=== PATIENT | male | born 1970 | race Caucasian/White ===

== ENCOUNTER 2017-06-26 20:11 | Emergency (ER) | payer OTHER ==
[~2017-06-26] VITALS: Ht 190.5 cm; Wt 136.1 kg
[~2017-06-26 20:11] MED LIST: BP MEDICATION; DOXYCYCLINE100 MG PO; LISINOPRIL10 MG PO; LODINE400 MG PO; TRAMADOL HCL50 MG PO; VICODIN 5/500 505 MG PO
[2017-06-26 21:22] LABS: BASO % 0.7 % (0.0-1.0); EOS % 0.5 % (1.0-4.0); HEMATOCRIT 40.4 % (42.0-52.0); HEMOGLOBIN 13.2 g/dl (14.0-18.0); LYMPH # 1.1 10*3/uL (1.3-4.4); LYMPH % 18.4 % (27.0-41.0); MEAN CORPUSCULAR HGB 27.4 pg (27.0-31.0); MEAN CORPUSCULAR HGB CONC 32.7 g/dl (33.0-37.0); MEAN PLATELET VOLUME 9.5 fl (9.6-12.3); MONO # 0.7 10*3/uL (0.1-1.0); MONO % 11.1 % (3.0-9.0); NEUT % 69.1 % (47.0-73.0); PLATELET COUNT AUTOMATED 165 10*3/uL (130-400); RED BLOOD COUNT 4.81 10*6/uL (4.50-5.90); RED CELL DISTRI WIDTH 13.6 % (0-14.5); WHITE BLOOD COUNT 5.8 10*3/uL (4.8-10.8)
[2017-06-26 21:38] LABS: ALBUMIN 3.5 gm/dl (3.1-4.5); ALKALINE PHOSPHATASE 54 U/L (45-117); BUN 10 mg/dl (7-24); CHLORIDE 99 mmol/L (98-107); SGOT/AST 31 IU/L (3-35); SGPT/ALT 39 U/L (12-78); SODIUM 137 mmol/L (136-145); TOTAL PROTEIN 7.6 gm/dL (6.4-8.2)
[2017-06-26 21:40] LABS: TROPONIN I < 0.015 ng/ml (<0.045)
[2017-06-26] MEDS ORDERED: PROVENTIL HFA6.7 GM INH (22:44)
[2017-06-26] MEDS ORDERED: CLARITIN10 MG PO (22:44)
[2017-06-26] MEDS ORDERED: TAMIFLU45 MG PO (22:44)
[2017-06-26 22:55] LABS: BILIRUBIN NEGATIVE (NEGATIVE); BLOOD NEGATIVE (NEGATIVE); CLARITY SL CLOUDY (CLEAR); COLOR YELLOW (YELLOW); GLUCOSE NEGATIVE (NEGATIVE); KETONE NEGATIVE (NEGATIVE); LEUKO ESTERASE NEGATIVE (NEGATIVE); NITRITE NEGATIVE (NEGATIVE); SPECIFIC GRAVITY >= 1.030 (1.005-1.030); UROBILINOGEN 0.2 E.U./dl (0.2-1.0)
[2017-06-26 23:02] LABS: BACTERIA 1+; EPITHELIAL CELLS 0-2; RBC 0-2 rbc/hpf (0-2)
[2017-06-26 23:03] LABS: MUCOUS TRACE
== END 2017-06-26 22:52 | disposition home or self-care (01) ==
LOC: ED 20:11
PROVIDERS: Emergency Medicine
DX: J09.X2 Influenza due to identified novel influenza A virus with other respiratory manifestations (principal); Z98.890 Other specified postprocedural states; Z79.899 Other long term (current) drug therapy

== ENCOUNTER → 2020-02-09 | Outpatient (CLI) | payer OTHER ==
[~2020-02-09] MED LIST changes: +CLARITIN10 MG PO; +PROVENTIL HFA6.7 GM INH; +TAMIFLU45 MG PO
[2020-02-09 18:48] LABS: BASO % 0.3 % (0.0-1.0); EOS # 0.5 10*3/uL (0.0-0.4); EOS % 5.6 % (1.0-4.0); HEMATOCRIT 44.4 % (42.0-52.0); LYMPH # 2.2 10*3/uL (1.3-4.4); LYMPH % 24.8 % (27.0-41.0); MEAN CELL VOLUME 84.3 fl (80.0-94.0); MEAN CORPUSCULAR HGB 26.6 pg (27.0-31.0); MEAN CORPUSCULAR HGB CONC 31.5 g/dl (33.0-37.0); MEAN PLATELET VOLUME 10.1 fl (9.6-12.3); MONO # 0.5 10*3/uL (0.1-1.0); MONO % 5.3 % (3.0-9.0); NEUT # 5.6 10*3/uL (2.3-7.9); NEUT % 63.7 % (47.0-73.0); PLATELET COUNT AUTOMATED 258 10*3/uL (130-400); RED BLOOD COUNT 5.27 10*6/uL (4.50-5.90); RED CELL DISTRI WIDTH 13.8 % (0-14.5); WHITE BLOOD COUNT 8.7 10*3/uL (4.8-10.8)
[2020-02-09 19:00] LABS: BILIRUBIN NEGATIVE; BLOOD NEGATIVE (NEGATIVE); CLARITY CLEAR (CLEAR); COLOR YELLOW (YELLOW); GLUCOSE NEGATIVE; KETONE NEGATIVE; LEUKO ESTERASE NEGATIVE (NEGATIVE); NITRITE NEGATIVE (NEGATIVE)
[2020-02-09 19:09] LABS: ALBUMIN 3.5 gm/dl (3.1-4.5); ALKALINE PHOSPHATASE 75 U/L (45-117); BUN 9 mg/dl (7-24); CHLORIDE 104 mmol/L (98-107); CHOLESTEROL 162 mg/dL (<200); CREATININE 0.91 mg/dL (0.70-1.30); HDL CHOLESTEROL 34 mg/dl (40-60); LDL CHOLESTEROL 96 mg/dL (9-159); POTASSIUM 3.9 mmol/L (3.5-5.1); SGOT/AST 18 IU/L (3-35); SGPT/ALT 26 U/L (12-78); SODIUM 138 mmol/L (136-145); TOTAL PROTEIN 7.7 gm/dL (6.4-8.2); TRIGLYCERIDES 159 mg/dl (<150); VLDL CHOLESTEROL 32 mg/dL (6-40)
[2020-02-09 19:10] LABS: BACTERIA TRACE; EPITHELIAL CELLS 0-2; MUCOUS 1+; WBC 0-2 wbc/hpf (0-5)
== END | disposition home or self-care (01) ==
LOC: LAB 16:41
PROVIDERS: ATTEND Internal Medicine
DX: Z12.5 Encounter for screening for malignant neoplasm of prostate (principal); I10 Essential (primary) hypertension; E78.9 Disorder of lipoprotein metabolism, unspecified; R63.5 Abnormal weight gain; R79.9 Abnormal finding of blood chemistry, unspecified

== ENCOUNTER → 2020-04-09 | Outpatient (CLI) | payer OTHER | END | disposition home or self-care (01) | LOC: COVID19 01:39 | PROVIDERS: ATTEND Student in an Organized Health Care Education/Training Program | DX: Z20.828 Contact with and (suspected) exposure to other viral communicable diseases (principal) ==

== ENCOUNTER 2021-05-21 14:20 | Inpatient (IN) | payer OTHER ==
[2021-05-21] VITALS (11 sets, daily range): BP systolic 112–148; BP diastolic 66–91
[~2021-05-21] VITALS: Ht 187.9 cm; Wt 136.3 kg
[2021-05-21 15:17] LABS: HEMATOCRIT 47.2 % (42.0-52.0); LYMPH % 20.7 % (27.0-41.0); MEAN CELL VOLUME 84.9 fl (80.0-94.0); MEAN CORPUSCULAR HGB 26.3 pg (27.0-31.0); MEAN CORPUSCULAR HGB CONC 30.9 g/dl (33.0-37.0); MEAN PLATELET VOLUME 10.6 fl (9.6-12.3); MONO # 0.3 10*3/uL (0.1-1.0); MONO % 6.8 % (3.0-9.0); NEUT # 3.6 10*3/uL (2.3-7.9); NEUT % 72.3 % (47.0-73.0); PLATELET COUNT AUTOMATED 184 10*3/uL (130-400); RED BLOOD COUNT 5.56 10*6/uL (4.50-5.90); RED CELL DISTRI WIDTH 13.7 % (0-14.5)
[2021-05-21 15:29] LABS: ACT PARTIAL THROMBO TIME 34.7 SECONDS (20.0-32.1); INTERNATIONAL NORM RATIO 1.1 (2.0-3.5)
[2021-05-21 15:32] LABS: ALBUMIN 2.6 gm/dl (3.1-4.5); ALKALINE PHOSPHATASE 58 U/L (45-117); BUN 15 mg/dl (7-24); CHLORIDE 96 mmol/L (98-107); CPK 280 U/L (39-308); CREATININE 1.34 mg/dL (0.70-1.30); POTASSIUM 4.7 mmol/L (3.5-5.1); SGOT/AST 73 IU/L (3-35); SGPT/ALT 42 U/L (12-78); SODIUM 132 mmol/L (136-145); TOTAL PROTEIN 7.8 gm/dL (6.4-8.2)
[2021-05-21 15:57] LABS: ABG BASE EXCESS 3.4 mmol/L (-2.0-2.0); ARTERIAL BLOOD GAS PH 7.338 (7.35-7.45); ARTERIAL BLOOD GAS PO2 109.5 (80-90)
[2021-05-21 17:13] LABS: BILIRUBIN Negative (Negative); BLOOD 1+ (Negative); CLARITY Clear (Clear); COLOR Yellow (Yellow); GLUCOSE Negative (Negative); KETONE Negative (Negative); LEUKO ESTERASE Negative (Negative); NITRITE Negative (Negative); PH 5.5 (4.5-8.0)
[2021-05-21 17:22] LABS: BACTERIA 2+
[2021-05-22] VITALS (37 sets, daily range): BP systolic 118–148; BP diastolic 80–100
[2021-05-22 00:28] LABS: ABG BASE EXCESS 1.5 mmol/L (-2.0-2.0); ARTERIAL BLOOD GAS PH 7.357 (7.35-7.45); ARTERIAL BLOOD GAS PO2 71.1 (80-90)
[2021-05-22 05:59] LABS: ALBUMIN 2.1 gm/dl (3.1-4.5); BUN 23 mg/dl (7-24); CHLORIDE 100 mmol/L (98-107); CREATININE 1.34 mg/dL (0.70-1.30); POTASSIUM 4.5 mmol/L (3.5-5.1); SGOT/AST 63 IU/L (3-35); SGPT/ALT 39 U/L (12-78); SODIUM 134 mmol/L (136-145)
[2021-05-22 06:07] LABS: ALKALINE PHOSPHATASE 49 U/L (45-117); FREE T4 1.12 ng/dl (0.76-1.46); LDH 392 U/L (87-241); THYROID STIM HORMONE (HS) 0.453 uIU/ml (0.358-4.75)
[2021-05-22 06:21] LABS: HEMATOCRIT 43.7 % (42.0-52.0); MEAN CORPUSCULAR HGB 26.3 pg (27.0-31.0); MEAN CORPUSCULAR HGB CONC 31.4 g/dl (33.0-37.0); MEAN PLATELET VOLUME 10.7 fl (9.6-12.3); PLATELET COUNT AUTOMATED 202 10*3/uL (130-400); RED CELL DISTRI WIDTH 13.7 % (0-14.5); WHITE BLOOD COUNT 9.9 10*3/uL (4.8-10.8)
[2021-05-22 07:02] LABS: FERRITIN 404.5 ng/mL (22.0-322.0); VITAMIN D, 25-HYDROXY 16.9 ng/mL (30-100)
[2021-05-22 07:19] LABS: ATYPICAL LYMPHS 1 % (0-0); TOTAL CELLS COUNTED 100 #CELLS
[2021-05-22 07:20] LABS: BURR CELLS FEW; PLATELET SUFFICIENCY NORMAL (NORMAL); POLYCHROMASIA SLIGHT
[2021-05-22] MEDS ORDERED: LISINOPRIL10 M1 PO (07:56)
[2021-05-23] VITALS (56 sets, daily range): BP systolic 78–135; BP diastolic 24–95
[2021-05-23 10:18] LABS: MEAN CELL VOLUME 84.1 fl (80.0-94.0); MEAN CORPUSCULAR HGB 26.3 pg (27.0-31.0); MEAN CORPUSCULAR HGB CONC 31.3 g/dl (33.0-37.0); MEAN PLATELET VOLUME 11.4 fl (9.6-12.3); NUCLEATED RED BLOOD CELL 0.1 10*3/uL (0.0-0.0); NUCLEATED RED BLOOD CELL 1.3 % (0.0-0.0); PLATELET COUNT AUTOMATED 228 10*3/uL (130-400); RED BLOOD COUNT 5.47 10*6/uL (4.50-5.90); RED CELL DISTRI WIDTH 13.6 % (0-14.5); WHITE BLOOD COUNT 4.5 10*3/uL (4.8-10.8)
[2021-05-23 10:29] LABS: ALBUMIN 2.1 gm/dl (3.1-4.5); CREATININE 2.25 mg/dL (0.70-1.30); POTASSIUM 4.6 mmol/L (3.5-5.1); TOTAL PROTEIN 6.8 gm/dL (6.4-8.2)
[2021-05-23 10:47] LABS: ABG BASE EXCESS 2.7 mmol/L (-2.0-2.0); ARTERIAL BLOOD GAS PH 7.295 (7.35-7.45); ARTERIAL BLOOD GAS PO2 68.4 (80-90)
[2021-05-23 11:09] LABS: ATYPICAL LYMPHS 3 % (0-0); PLATELET SUFFICIENCY NORMAL (NORMAL); POLYCHROMASIA SLIGHT; ROULEAUX SLIGHT; TOTAL CELLS COUNTED 100 #CELLS
[2021-05-23 17:29] LABS: ARTERIAL BLOOD GAS PO2 68.9 (80-90)
[2021-05-23 17:31] LABS: ARTERIAL BLOOD GAS PH 7.09 (7.35-7.45)
[2021-05-23 19:51] LABS: ARTERIAL BLOOD GAS PO2 70.9 (80-90)
[2021-05-23 19:53] LABS: ABG BASE EXCESS -8.3 mmol/L (-2.0-2.0); ARTERIAL BLOOD GAS PH 7.053 (7.35-7.45)
[2021-05-23 23:58] LABS: ABG BASE EXCESS -9.1 mmol/L (-2.0-2.0); ARTERIAL BLOOD GAS PO2 56.5 (80-90)
[2021-05-24] VITALS (49 sets, daily range): BP systolic 53–109; BP diastolic 30–63
[2021-05-24 00:01] LABS: ARTERIAL BLOOD GAS PH 7.001 (7.35-7.45)
[2021-05-24 02:58] LABS: ABG BASE EXCESS -9.9 mmol/L (-2.0-2.0); ARTERIAL BLOOD GAS PO2 53.9 (80-90)
[2021-05-24 02:59] LABS: ARTERIAL BLOOD GAS PH 7.03 (7.35-7.45)
[2021-05-24 06:58] LABS: HEMATOCRIT 50.4 % (42.0-52.0); MEAN CORPUSCULAR HGB 27.3 pg (27.0-31.0); NUCLEATED RED BLOOD CELL 0.1 10*3/uL (0.0-0.0); NUCLEATED RED BLOOD CELL 1.5 % (0.0-0.0); RED BLOOD COUNT 5.54 10*6/uL (4.50-5.90); WHITE BLOOD COUNT 9.6 10*3/uL (4.8-10.8)
[2021-05-24 07:02] LABS: PLATELET COUNT AUTOMATED 303 10*3/uL (130-400)
[2021-05-24 07:14] LABS: ALBUMIN 1.8 gm/dl (3.1-4.5); CREATININE 5.61 mg/dL (0.70-1.30); TOTAL PROTEIN 6.6 gm/dL (6.4-8.2)
[2021-05-24 07:19] LABS: TOTAL CELLS COUNTED 100 #CELLS; TOXIC GRANULATION MODERATE; VACUOLATION OF NEUTROPHILS SLIGHT
[2021-05-24 07:20] LABS: PLATELET SUFFICIENCY NORMAL (NORMAL); POLYCHROMASIA SLIGHT; ROULEAUX MODERATE
[2021-05-24 07:25] LABS: POTASSIUM 6.4 mmol/L (3.5-5.1)
== END 2021-05-24 12:05 | DRG 871 ==
LOC: ED 14:20 → ICCU 16:14 → EDHOLD 16:14 → ICCU 05-22 19:28
PROVIDERS: Emergency Medicine; Hospitalist; Internal Medicine Critical Care Medicine; Nurse Practitioner Adult Health; Student in an Organized Health Care Education/Training Program; Surgery; ADMIT Family Medicine; ATTEND Family Medicine
PROC: XW033E5 Introduction of Remdesivir Anti-infective into Peripheral Vein, Percutaneous Approach, New Technology Group 5 (ICD-10-PCS; principal; 2021-05-21)
PROC: 5A1945Z Respiratory Ventilation, 24-96 Consecutive Hours (ICD-10-PCS; 2021-05-21)
PROC: 0BH18EZ Insertion of Endotracheal Airway into Trachea, Via Natural or Artificial Opening Endoscopic (ICD-10-PCS; 2021-05-21)
PROC: XW033H5 Introduction of Tocilizumab into Peripheral Vein, Percutaneous Approach, New Technology Group 5 (ICD-10-PCS; 2021-05-21)
PROC: 5A09357 Assistance with Respiratory Ventilation, Less than 24 Consecutive Hours, Continuous Positive Airway Pressure (ICD-10-PCS; 2021-05-21)
PROC: 02HV33Z Insertion of Infusion Device into Superior Vena Cava, Percutaneous Approach (ICD-10-PCS; 2021-05-21)
PROC: B548ZZA Ultrasonography of Superior Vena Cava, Guidance (ICD-10-PCS; 2021-05-21)
PROC: 03HY33Z Insertion of Infusion Device into Upper Artery, Percutaneous Approach (ICD-10-PCS; 2021-05-23)
DX: A41.9 Sepsis, unspecified organism (principal); U07.1 COVID-19; J12.82 Pneumonia due to coronavirus disease 2019; E43 Unspecified severe protein-calorie malnutrition; N17.0 Acute kidney failure with tubular necrosis; J80 Acute respiratory distress syndrome; E87.1 Hypo-osmolality and hyponatremia; E87.2 Acidosis; Z66 Do not resuscitate; R65.20 Severe sepsis without septic shock; E87.8 Other disorders of electrolyte and fluid balance, not elsewhere classified; R73.9 Hyperglycemia, unspecified; D69.6 Thrombocytopenia, unspecified; E83.41 Hypermagnesemia; R74.01 Elevation of levels of liver transaminase levels; I10 Essential (primary) hypertension; Z51.5 Encounter for palliative care